=== PATIENT | male | born 1935 | race Caucasian/White ===

== ENCOUNTER 2018-10-04 08:00 | Observation (INO) | payer MEDICARE ==
[~2018-10-04] VITALS: Ht 185.4 cm; Wt 83.9 kg
[2018-10-04] VITALS (24 sets, daily range): BP systolic 92–110; BP diastolic 45–75
[2018-10-04] MEDS ORDERED: ASPIR 8181 MG PO (08:36)
[2018-10-04] MEDS ORDERED: LIPITOR40 MG PO (08:37)
[2018-10-04] MEDS ORDERED: COREG25 MG PO (08:37)
[2018-10-04] MEDS ORDERED: ARAVA20 MG PO (08:38)
[2018-10-04] MEDS ORDERED: LISINOPRIL10 MG PO ×2 (08:38→08:39)
[2018-10-04] MEDS ORDERED: VITAMIN E400 UNIT PO (08:40)
[2018-10-04] MEDS ORDERED: ACCOLATE20 MG PO (08:42)
[2018-10-04 09:01] LABS: HEMATOCRIT 45.4 % (42.0-52.0); HEMOGLOBIN 14.9 gm/dL (14.0-18.0); MCH 27.4 pg (26.0-34.0); MCHC 32.8 g/dL (28.0-37.0); MCV 83.3 fL (80.0-100.0); MPV 9.3 fl. (7.2-11.1); RBC 5.45 mil/uL (4.50-6.00); RDW-CV 15.6 % (10.5-14.5); WBC 5.7 thou/uL (4.0-11.0)
[2018-10-04 09:08] LABS: APTT 27.6 Seconds (25.0-31.3); PROTIME 10.3 Seconds (9.20-11.50)
[2018-10-04 09:15] LABS: ALBUMIN 3.5 g/dL (3.4-5.0); ALKALINE PHOSPHATASE 81 U/L (46-116); ANION GAP 4 mmol/L (7-16); BUN 20 mg/dL (7-18); CALCIUM 8.5 mg/dL (8.5-10.1); CHLORIDE 101 mmol/L (98-107); CO2 33 mmol/L (21-32); CREATININE 0.9 mg/dL (0.6-1.3); GLUCOSE 97 mg/dL (70-99); POTASSIUM 3.8 mmol/L (3.5-5.1); SGOT 23 U/L (15-37); SGPT 24 U/L (30-65); SODIUM 138 mmol/L (136-145); TOTAL BILIRUBIN 0.7 mg/dL (<0.1-1.0); TOTAL PROTEIN 7.3 g/dL (6.4-8.2)
[2018-10-04 09:35] LABS: CHOLESTEROL 128 mg/dL (<200); HDL CHOLESTEROL 33 mg/dL (>40); LDL CHOLESTEROL 55 mg/dL (<100); TC:HDL 3.9 Ratio (Not establshd); TRIGLYCERIDE 200 mg/dL (<150); VLDL 40 mg/dL (<40)
[2018-10-04 09:36] LABS: SERUM ASSESSMENT Clear
--- NOTE | 2018-10-04 11:46 | EKG ---
[place] [address] ELECTROCARDIOGRAM REPORT Name: GLORIANATALIA Room: [facility]#: [id number] Admission: 10/04/18 Attend Phys: Familia Choi MD, F Discharge: Date of : 39 Report #: [id number] THIS REPORT FOR: //name// [facility] Test Date: 2018-10-04 Test Time: 08:52:23 Pat Name: NATALIA CASTRO Department: Room: Gender: Valver: : 1935 Requested By: Familia Choi Order Number: [id number] Florina MD: Familia Choi Measurements Intervals [place] Rate: 80 P: 53 CT: 171 QRS: -29 QRSD: 101 T: 120 QT: 380 QTc: 439 Interpretive Statements Sinus rhythm Inferior infarct, old Anterolateral infarct, age indeterminate Compared to ECG 05/24/2008 13:20:56 Sinus tachycardia no longer present Myocardial infarct finding still present Electronically Signed On 10-04-2018 11:46:02 RESEARCH PHYSICIST by Familia Choi [email or web address] <ELECTRONICALLY SIGNED> By: Familia Choi MD, [facility] 10/04/18 1146 [id number] Familia Choi MD, [facility] /EPI
--- NOTE | 2018-10-04 13:46 | CARD ---
[address] [address] CARDIAC CATH REPORT Name: GLORIANATALIA HONGDARSHANCUONG Room: [facility] ASH DaigleFacundo#: [id number] Admission: 10/04/18 Attend Phys: Familia Choi MD, F Discharge: Date of : 37 Report #: [id number] THIS REPORT FOR: //name// APPROVED REPORT Study performed: 10/04/2018 09:06:19 Patient Details Patient Status: Out-Patient Room #: The patient is a 83 year-old male Event Personnel Familia Choi Regulatory Affairs Specialist, Jaja Centeno RN Community Case Manager, Guillermo Cook (R) Monitor, Deja Denise RTR Scrub Procedures Performed PEPPER Place w/wo Plasty Single CIRC, PEPPER Place w/wo Plasty Addl BR OM 2 Indication CardiomyopathyPositive stress test Risk Factors Hypercholesterolemia, Coronary Artery Disease Previous Procedures/Diagnoses Previous PCI, Previous ND Admission/Lab Medications/Medications given during procedure Glycoprotein IllbIlla Inhibitors, Heparin Unfract. Procedure Narrative The patient was brought electively to the Cardiac Catheterization Laboratory and was prepped and draped in a sterile manner. The right wrist was infiltrated with 1% Lidocaine subcutaneous anesthesia. A Slender Glidesheath sheath was inserted into the right radial artery. Coronary angiography was performed using coronary diagnostic catheters. The right coronary system was accessed and visualized with a Diagnostic JR 4 catheter. The left coronary system was accessed and visualized with a Diagnostic JL 4 catheter. The left ventricle was accessed and visualized with a Diagnostic Angled Pigtail catheter. Left ventricular/Aortic Valve gradient assessed via catheter pullback. Left ventriculogram was [place] [address] CARDIAC CATH REPORT Name: NATALIA CASTRO Room: [facility]#: [id number] Admission: 10/04/18 Attend Phys: Familia Choi MD, F Discharge: Date of : 37 Report #: [id number] Closure device was deployed with a 6 Fr Vasc-Band Reg 24cm. The patient tolerated the procedure well and there were no complications associated with the procedure. There was no hematoma. Intraoperative Conscious Sedation Sedation start time: 10:02 Case end Time: 11:07 Fentanyl 25 mcg Versed 4 mg Fluoro Time: 13.7 minutes Dose: DAP 09210 cGycm2 1417 mGy Contrast Type and Amount: Omnipaque 25 ml Coronary Angiography The patient's coronary anatomy is right dominant. Diagnostic Cath Left Main 0% stenosis LAD proximal stent with 40% restenosis. Distal stent with 0% restenosis Diagonal 1 mid stent with 40% restenosis Circumflex 80% proximal stenosis OM2 80% mid stenosis OM3 60% proximal stenosis Right Coronary 60% proximal stenosis Ramus 0% stenosis Left Ventriculography The left ventricular ejection fraction is estimated to be 25-30%. Left ventricular wall motion abnormalities are present. There is 1+ mitral insufficiency. anteroapical akinesis Hemodynamics The aortic pressure is 82/51 mmHg with a mean of 65 mmHg. The left ventricular pressure is 91/10 mmHg with a mean of mmHg. The left ventricular end diastolic pressure is 12 mmHg. There was no gradient across the aortic valve upon pullback. Pullback from the left ventricle to the aorta revealed no gradient across the aortic valve. PCI Technique Lesion Anticoagulation was achieved with Heparin. bolus of iv aggrastat given Percutaneous coronary intervention was performed on the proximal circumflex artery segment. The lesion stenosis prior to intervention was 80% with JAIRO 3 flow. A 6FR XB 3.5 100CM Guide Catheter was used to engage the lm ostium. A IG: [facility] [place] [address] [place] [address] CARDIAC CATH REPORT Name: NATALIA CASTRO Room: [facility]#: [id number] Admission: 10/04/18 Attend Phys: Familia Choi MD, F Discharge: Date of : 37 Report #: [id number] Interventional Guidewire was used to cross the lesion. STENT DEPLOYMENT A drug-eluting stent Xience Kasey [id number] was inserted and inflated up to 10.00atm for 13seconds. Repeat angiography revealed the following post-stent deployment results: 0% stenosis. Additional Inflation: 12.00atm for 16seconds. Additional Inflation: 13.00atm for 9seconds. Final angiography reveals 0 % stenosis with JAIRO 3 flow. PCI Technique Lesion 2 Percutaneous Coronary Intervention was performed on the second obtuse marginal branch segment. Percutaneous coronary intervention was performed on the second obtuse marginal branch segment. The lesion stenosis prior to intervention was 80% with JAIRO 3 flow. A 6FR XB 3.5 100CM Guide Catheter was used to engage the lm ostium. A IG: [employer] 190cm Interventional Guidewire was used to cross the lesion. Balloon Dilation A Balloon catheter Mini Trek RX 2.0 X 8 was inserted and inflated up to 8.00atm for 14seconds. Repeat angiography revealed the following post-dilatation results: 50% stenosis. Additional Inflation: 12.00atm for 13seconds. Stent Deployment A drug-eluting stent Medtronic Steve [id number] was inserted and inflated up to 8.00atm for 14seconds. Repeat angiography revealed the following post-stent deployment results: 0% stenosis. Additional Inflation: 9.00atm for 11seconds. Additional Inflation: 9.00atm for 13seconds. Final angiography reveals 0 % stenosis with JAIRO 3 flow. Conclusion 1. no significant restenosis of stents in the proximal and distal lad, and first diagonal branch 2. 80% stenosis of proximal circumflex and 2nd marginal branch 3. successful placement of drug eluting stents in the proximal circumflex and second marginal branch 4. severe LV dysfunction with EF 25-30% Recommend[place] [address] CARDIAC CATH REPORT Name: GLORIANATALIAVALENTÍN GARDINER Room: [facility] JaysonEvaFacundo#: [id number] Admission: 10/04/18 Attend Phys: Familia Choi MD, F Discharge: Date of : 39 Report #: [id number] Medications Administered Clopidogrel <ELECTRONICALLY SIGNED> By: Familia Choi MD, FACC 10/04/18 1346 1346 1346Dakailey Choi MD, FAC /INF
--- NOTE | 2018-10-04 16:50 | EKG ---
[place] [address] ELECTROCARDIOGRAM REPORT Name: NATALIA CASTRODARSHANCUONG Room: [address] M.R.#: [id number] Admission: 10/04/18 Attend Phys: Familia Choi MD, F Discharge: Date of : 39 Report #: [id number] THIS REPORT FOR: //name// [facility] Test Date: 2018-10-04 Test Time: 15:22:01 Pat Name: NATALIA CASTRO Department: Room: [address] Gender: M Credit Interviewer: : 1935 Requested By: Familia Choi Order Number: [id number] Florina MD: Familia Choi Measurements Intervals [place] Rate: 71 P: 53 [place]: 187 QRS: -7 QRSD: 110 T: 117 QT: 406 QTc: 442 Interpretive Statements Sinus rhythm Probable anterior infarct, age indeterminate Compared to ECG 10/04/2018 08:52:23 No significant changes Electronically Signed On 10-04-2018 16:50:32 BOX STORAGE WORKER by Familia Choi [email or web address] <ELECTRONICALLY SIGNED> By: Familia Choi MD, [facility] 10/04/18 1650 1522 1522 Familia Choi MD, [facility] /EPI
[2018-10-05] VITALS: BP 122/63
[2018-10-05 04:00] VITALS: BP 122/55
[2018-10-05 08:00] VITALS: BP 165/80
[2018-10-05] MEDS ORDERED: NITROGLYCERIN0.4 MG SUBLING (09:28)
[2018-10-05] MEDS ORDERED: PLAVIX 75 MG TA75 M1 PO (09:29)
[2018-10-05 10:34] VITALS: BP 108/48
--- NOTE | 2018-10-05 11:32 | D ---
[address] [address] DISCHARGE SUMMARY Name: NATALIA CASTROFAMILIA Room: [address] [place]#: [id number] Admission: 10/04/18 Attend Phys: Familia Choi MD, F Discharge: Date of : 39 Report #: [id number] THIS REPORT FOR: //name// CC: Familia Gonzalez DATE OF SERVICE: 10/05/2018 DISCHARGE DIAGNOSES: 1. Coronary artery disease. 2. Ischemic cardiomyopathy. 3. Hypertension. 4. Hyperlipidemia. CONSULTANTS: None. PROCEDURES: Left heart catheterization with placement of 2 drug-eluting stents in the circumflex artery via the radial approach. PRIMARY CARE PHYSICIAN: Colby Busby MD. HISTORY OF PRESENT ILLNESS: The patient is an 83-year-old white male who was brought to the outpatient department to do cardiac catheterization. The patient previously presented in 2000 with an anterior wall myocardial infarction. He had 2 stents placed in the LAD and one into the diagonal at that time at [facility]. I follow him clinically since that time. He has a history of an ischemic cardiomyopathy, and he has refused a defibrillator in the past. I saw him in the office recently, and he denied any recent chest pain, shortness of breath, palpitation, syncope or edema. He underwent a nuclear stress test in September that showed evidence of previous anteroapical infarction. There was also reversible ischemia in the inferior wall. Ejection fraction was only 27%. Because of his markedly abnormal nuclear stress test, recommended he undergo repeat cardiac catheterization. Previous screening showed minimal carotid plaque. PAST MEDICAL HISTORY: Otherwise significant for prostate cancer, ocular lymphoma, rheumatoid arthritis, asthma, hypertension, hyperlipidemia. He has had previous ankle surgery. MEDICATIONS: Include aspirin, Lipitor, carvedilol, Arava, Prinivil. ALLERGIES: HE HAD A PREVIOUS ALLERGY TO PENICILLIN. PHYSICAL EXAMINATION: VITAL SIGNS: Blood pressure 120/70, pulse 70, [place] [address] DISCHARGE SUMMARY Name: NATALIA CASTRO ABDIFATAH Room: [address] M.R.#: [id number] Admission: 10/04/18 Attend Phys: Familia Choi MD, F Discharge: Date of : 37 Report #: [id number] CHEST: Clear to auscultation. CARDIOVASCULAR: Regular rate and rhythm. ABDOMEN: Soft. EXTREMITIES: No edema. SKIN: Warm, dry. NEUROLOGIC: Nonfocal. LYMPH: No adenopathy. MUSCULOSKELETAL: No joint effusion. LABORATORY DATA: ECG showed sinus rhythm, previous anterior infarction. His lab work revealed potassium 3.8, BUN 20, creatinine 0.9, glucose 97. Liver function studies were normal. Cholesterol 128, triglyceride 200, HDL 33, LDL 55. White blood cell count 5.7, hemoglobin 14.9. HOSPITAL COURSE: The patient was brought to the outpatient department. I performed left heart catheterization from the right radial artery. Results showed an ejection fraction of only 25-30% with anteroapical akinesia, mild mitral regurgitation. Left ventricular end diastolic pressure of only 12. The stent in the proximal LAD had only 40% restenosis. There is a stent in the distal LAD, had no restenosis. The first diagonal branch had a stent with a 40% restenosis. The circumflex had a proximal 80% stenosis. The second marginal branch had an 80% stenosis. The right coronary had a proximal 60% stenosis. The results were discussed with the patient. He is felt to have no significant restenosis of the stents. However, he had significant stenosis in the circumflex and second marginal branch. He was then given heparin, and I placed drug-eluting stent in the proximal circumflex and second marginal branch. He tolerated the procedure well. He has had no further chest pain, shortness of breath or arrhythmias. The following day, there was no significant hematoma of the right wrist. ECG showed no changes. At the time of discharge, he was ambulating, had no complaints. His vital signs at the time of discharge, blood pressure 120/60, pulse 70. The results were discussed with the patient. He is felt to have evidence of an ischemic cardiomyopathy. He was discharged to continue aspirin 81 mg a day, Lipitor 40 mg a day, carvedilol 25 mg twice a day. Arava for rheumatoid arthritis, lisinopril 10 mg twice a day. He was started on Plavix 75 mg a day for one year following stenting. He was given nitroglycerin to take as needed for chest pain. I suggest that he take spironolactone to prevent development of congestive heart failure. The patient states he feels fine, and he was not interested in additional medications at this time. Also discussed I would recommend a defibrillator because of ischemic cardiomyopathy, although again the patient is not interested in a defibrillator at this time. He was discharged to return to care of Dr. Busby for routine medical care. He was to contact my office if he had bleeding, shortness of breath or increasing shortness of breath. I plan on seeing him back in [address] [address] DISCHARGE SUMMARY Name: NATALIA CASTRO Room: [address] Azeem Can#: [id number] Admission: 10/04/18 Attend Phys: Familia Choi MD, F Discharge: Date of : 39 Report #: [id number] on [facility] for a followup of his ischemic cardiomyopathy. His prognosis is guarded. <ELECTRONICALLY SIGNED> By: Familia Choi MD, FACC 10/05/18 1132 0825 [id number] Choi MD, FACC /nt
[2018-10-05 12:52] VITALS: BP 136/69
== END 2018-10-05 13:10 | disposition home or self-care (01) ==
LOC: M.CL 08:00 → M.TBA-CV 14:46 → M.2W 14:53
PROVIDERS: ADMIT Internal Medicine Cardiovascular Disease
DX: I25.10 Atherosclerotic heart disease of native coronary artery without angina pectoris (principal); I25.5 Ischemic cardiomyopathy; I10 Essential (primary) hypertension; E78.5 Hyperlipidemia, unspecified; M06.9 Rheumatoid arthritis, unspecified; J45.909 Unspecified asthma, uncomplicated; Z79.82 Long term (current) use of aspirin; Z79.899 Other long term (current) drug therapy; Z85.46 Personal history of malignant neoplasm of prostate